=== PATIENT | male | born 1960 | race African-American/Black ===

== ENCOUNTER 2023-07-19 03:14 | Inpatient (IN) | payer MEDICARE ==
[~2023-07-19] VITALS: Ht 170.2 cm; Wt 93.0 kg
[2023-07-19] VITALS (10 sets, daily range): BP systolic 161; BP diastolic 81; PULSE 79–94; RESP 14–20; TEMP 98.2; O2SAT 90–98
[~2023-07-19 03:14] MED LIST: ATOR-47 PO; CAR125T PO; CLON0.2D6 PO; CLOP75TA28 PO; FLUO-126 PO; HYDR12.55 PO; LISI-275 PO; NITR0.4S29 SL; ONDA-144 PO; SITA50TA28 PO; ZOLP10TA PO
[2023-07-19 04:10] LABS: Mean Corpuscular Volume 100.7 fL (80.0-100.0)
[2023-07-19 04:13] LABS: Hematocrit 32.5 % (41.0-53.0); Hemoglobin 9.6 g/dL (13.5-17.5); Mean Corpuscular Hemoglobin 29.9 pg (28.0-32.0); Mean Corpuscular Hgb Conc. 29.7 g/dL (32.0-36.0); Red Blood Cells 3.23 10^6/uL (4.5-5.90); Red Cell Distribution Width 17.4 % (11.8-14.3)
[2023-07-19 04:25] LABS: Alanine Aminotransferase 49 U/L (7-40); Alkaline Phosphatase 117 U/L (46-116); Anion Gap 9 (5-15); Aspartate Aminotransferase 35 U/L (13-40); BUN/Creatinine Ratio 17.2 (10.0-20.0); Blood Urea Nitrogen 22 mg/dL (9-23); Calcium 8.7 mg/dL (8.7-10.4); Carbon Dioxide 21 mmol/L (20-30); Chloride 111 mmol/L (98-107); Glucose 144 mg/dL (74-106); Potassium 3.6 mmol/L (3.5-5.1); Sodium 141 mmol/L (136-145)
[2023-07-19 04:26] LABS: Bilirubin, Total 2.1 mg/dL (0.2-1.0)
[2023-07-19 04:30] LABS: White Blood Cell 226.4 10^3/uL (4.4-10.8)
[2023-07-19 04:32] LABS: Band Neutrophils % (manual) 0; Basophils % (manual) 0 (0.0-2.0); Blast Cells 0; Eosinophils % (manual) 0 (0-7); Metamyelocytes % 0; Monocytes % (manual) 0 (0-12); Myelocytes % 0; Promyelocytes % 0; Reactive Lymphocytes 0
[2023-07-19 04:37] LABS: INR 1.08 (0.9-1.15); Partial Thromboplastin Time 27.2 SEC (24.5-34.5); Prothrombin Time 11.3 sec (9.3-11.8)
[2023-07-19] MEDS: ACETAMINOPHEN 325 MG TAB PO ONE (06:00)
[2023-07-19] MEDS ORDERED: ALBUTEROL SULF 2.5 MG/0.5ML(0.5%) NEB SOLN HHN ONE (06:00)
[2023-07-19] MEDS ORDERED: IPRATROPIUM BROM 0.5 MG/2.5ML INH SOL HHN ONE (06:00)
[2023-07-19] MEDS ORDERED: VANCOMYCIN PER PHARMACY 0 MG IV SCH ×2 (06:00→08:45)
[2023-07-19] MEDS ORDERED: VANCOMYCIN 1GM/200ML 200 ML IV SCH (06:15)
[2023-07-19 06:38] LABS: Lymphocytes % (manual) 97 (10.0-50.0)
[2023-07-19 06:42] LABS: Macrocytosis Slight; Platelet Estimate Decreased
[2023-07-19 06:48] LABS: Anisocytosis Slight
[2023-07-19] MEDS: ALBUTEROL SULF 2.5 MG/0.5ML(0.5%) NEB SOLN NEB ONE (07:13)
[2023-07-19] MEDS: IPRATROPIUM BROM 0.5 MG/2.5ML INH SOL NEB ONE (07:13)
[2023-07-19] MEDS: IOHEXOL 300 MG/ML 100ML BOTTLE IJ ONE (08:12)
[2023-07-19] MEDS ORDERED: NITROGLYCERIN 0.4 MG SL TAB SL PRN (08:45)
[2023-07-19] MEDS ORDERED: ACETAMINOPHEN 325 MG TAB PO PRN (08:45)
[2023-07-19 09:36] LABS: Triglycerides 68 mg/dL (< 150)
[2023-07-19 09:37] LABS: LDL Cholesterol 49 mg/dL (< 100)
[2023-07-19 09:38] LABS: Cholesterol 88 mg/dL (< 200); HDL Cholesterol 27 mg/dL (40-59)
[2023-07-19] MEDS: ALBUTEROL SULF 2.5 MG/0.5ML(0.5%) NEB SOLN NEB SCH (10:00)
[2023-07-19] MEDS: IPRATROPIUM BROM 0.5 MG/2.5ML INH SOL NEB SCH (10:00)
[2023-07-19 12:00] LABS: Hematocrit 33.6 % (41.0-53.0); Hemoglobin 10.4 g/dL (13.5-17.5); Mean Corpuscular Hemoglobin 29.3 pg (28.0-32.0); Mean Corpuscular Hgb Conc. 30.9 g/dL (32.0-36.0); Red Blood Cells 3.53 10^6/uL (4.5-5.90); Red Cell Distribution Width 16.7 % (11.8-14.3)
[2023-07-19] MEDS: PIPERACILLIN-TAZOB 3.375GM 100 ML IV SCH (12:00)
[2023-07-19 12:15] LABS: White Blood Cell 241.7 10^3/uL (4.4-10.8)
[2023-07-19 12:17] LABS: Band Neutrophils % (manual) 0; Basophils % (manual) 0 (0.0-2.0); Blast Cells 0; Eosinophils % (manual) 0 (0-7); Metamyelocytes % 0; Myelocytes % 0; Promyelocytes % 0; Reactive Lymphocytes 0
[2023-07-19 12:54] LABS: Lymphocytes % (manual) 95 (10.0-50.0); Monocytes % (manual) 3 (0-12); Platelet Estimate Decreased
[2023-07-19] MEDS: LISINOPRIL 10 MG TAB PO ONE (13:00)
[2023-07-19] MEDS: MORPHINE SULFATE INJ 2 MG/ml SYRG IV ONE (13:00)
[2023-07-19] MEDS: SODIUM CHLORIDE 0.9% 1,000 ML IV SCH (13:00)
[2023-07-19] MEDS ORDERED: PIPERACILLIN-TAZOB 3.375GM 100 ML IV SCH (14:00)
[2023-07-19] MEDS: hydrALAZINE HCL 20 MG/ML VL IV PRN (14:04)
[2023-07-19] MEDS: MORPHINE SULFATE INJ 2 MG/ml SYRG IV PRN ×2 (14:14→17:59)
[2023-07-19 16:10] LABS: COVID19 ANTIGEN SOFIA FIA NEGATIVE (NEGATIVE)
[2023-07-19 16:11] LABS: Rapid Influenza A Negative (Negative); Rapid Influenza B Negative (Negative)
[2023-07-19] MEDS: IOHEXOL 350 MG/ML 100ML IJ ONE ×2 (17:14→22:35)
[2023-07-19] MEDS: VANCOMYCIN 1GM/200ML 200 ML IV ONE (18:00)
[2023-07-19] MEDS: HYDROcodone-ACET 5/325MG TAB PO PRN (20:48)
[2023-07-19] MEDS: ATORVASTATIN 20 MG TAB PO SCH (22:22)
[2023-07-19] MEDS: ZOLPIDEM TARTRATE 5 MG TAB PO PRN (22:23)
[2023-07-19] MEDS: CARVEDILOL 12.5 MG TAB PO SCH (22:23)
[2023-07-20] VITALS (14 sets, daily range): BP systolic 119–186; BP diastolic 59–83; PULSE 65–96; RESP 16–20; TEMP 98.3–98.9; O2SAT 92–100
[2023-07-20] MEDS ORDERED: CARV12.544 PO (00:47)
[2023-07-20] MEDS ORDERED: OLME1TAB71 PO (00:47)
[2023-07-20] MEDS ORDERED: GLUC-149 XX (00:47)
[2023-07-20] MEDS ORDERED: METF-869 PO (00:47)
[2023-07-20] MEDS ORDERED: ATOR40TA52 PO (00:47)
[2023-07-20] MEDS ORDERED: CLOP75TA70 PO (00:47)
[2023-07-20] MEDS ORDERED: HYDR-4298 PO (00:47)
[2023-07-20] MEDS ORDERED: CLON0.2T PO (00:47)
[2023-07-20] MEDS ORDERED: AMLO1TAB22 PO (00:47)
[2023-07-20] MEDS: hydrALAZINE HCL 20 MG/ML VL IV ONE ×2 (00:54→04:12)
[2023-07-20] MEDS: NITROGLYCERIN 0.4 MG SL TAB SL SCH (03:05)
[2023-07-20] MEDS: dilTIAZem 25 MG/5 ML VIAL IV ONE (03:30)
[2023-07-20] MEDS: ENALAPRILAT 1.25 MG/ML-1ML VIAL IV ONE (05:03)
[2023-07-20] MEDS: cloNIDine HCL 0.1 MG TAB PO ONE ×2 (06:05→10:45)
[2023-07-20 07:19] LABS: Alanine Aminotransferase 38 U/L (7-40); Albumin 4.1 g/dL (3.2-4.8); Alkaline Phosphatase 122 U/L (46-116); Anion Gap 9 (5-15); Aspartate Aminotransferase 36 U/L (13-40); BUN/Creatinine Ratio 9.6 (10.0-20.0); Bilirubin, Total 2.6 mg/dL (0.2-1.0); Blood Urea Nitrogen 10 mg/dL (9-23); Carbon Dioxide 20 mmol/L (20-30); Chloride 109 mmol/L (98-107); Glucose 147 mg/dL (74-106); Potassium 4.5 mmol/L (3.5-5.1); Sodium 138 mmol/L (136-145); Total Protein 6.3 g/dL (5.7-8.2)
[2023-07-20 07:52] LABS: Hematocrit 34.3 % (41.0-53.0); Hemoglobin 10.1 g/dL (13.5-17.5); Mean Corpuscular Hemoglobin 29.3 pg (28.0-32.0); Mean Corpuscular Hgb Conc. 29.5 g/dL (32.0-36.0); Mean Corpuscular Volume 99.4 fL (80.0-100.0); Red Blood Cells 3.45 10^6/uL (4.5-5.90); Red Cell Distribution Width 16.9 % (11.8-14.3)
[2023-07-20 08:08] LABS: White Blood Cell 243.5 10^3/uL (4.4-10.8)
[2023-07-20 08:09] LABS: Band Neutrophils % (manual) 0; Basophils % (manual) 0 (0.0-2.0); Blast Cells 0; Metamyelocytes % 0; Myelocytes % 0; Promyelocytes % 0
[2023-07-20] MEDS ORDERED: LISINOPRIL 5 MG TAB PO SCH (10:00)
[2023-07-20] MEDS: FLUoxetine HCL 10 MG CAP PO SCH (10:00)
[2023-07-20] MEDS: LOSARTAN POTASSIUM 50 MG TAB PO SCH (10:00)
[2023-07-20] MEDS: hydroCHLOROthiazide 25 MG TAB PO SCH (10:00)
[2023-07-20] MEDS ORDERED: CEFEPIME 2GM/50ML NS 50 ML IV ONE (10:30)
[2023-07-20] MEDS: VANCOMYCIN 1GM/200ML 200 ML IV SCH (10:44)
[2023-07-20] MEDS: amLODIPine BESYLATE 5 MG TAB PO SCH (10:55)
[2023-07-20] MEDS: LISINOPRIL 10 MG TAB PO SCH (10:56)
[2023-07-20] MEDS ORDERED: NITROGLYCERIN 0.4MG/HR TOPICAL PATCH TD ONE (11:15)
[2023-07-20 12:18] LABS: Eosinophils % (manual) 2 (0-7); Lymphocytes % (manual) 82 (10.0-50.0); Monocytes % (manual) 5 (0-12); Platelet Estimate Adequate; Reactive Lymphocytes 4
[2023-07-20] MEDS ORDERED: PATIENTS OWN MEDICATION (Clonidine Hydrochloride (Clonidine Hcl) 1 TAB) PO SCH (14:00)
[2023-07-20] MEDS ORDERED: TEMA30CA PO (14:25)
[2023-07-20] MEDS ORDERED: TRAZ-227 PO (14:25)
[2023-07-20] MEDS: ASPirin 81 mg TAB PO ONE (14:48)
[2023-07-20] MEDS: CLOPIDOGREL BISULFATE 75 MG TAB PO ONE (14:49)
[2023-07-20] MEDS: cloNIDine HCL 0.1 MG TAB PO SCH (14:50)
[2023-07-20] MEDS: CEFEPIME 2GM/50ML NS 50 ML IV SCH (14:51)
[2023-07-20] MEDS: SOD CHL 0.45% 1,000 ML IV SCH (15:01)
[2023-07-21] VITALS (21 sets, daily range): BP systolic 112–163; BP diastolic 64–103; PULSE 74–94; RESP 13–20; TEMP 98.5–99.2; O2SAT 89–100
[2023-07-21] MEDS: ALBUTEROL SULF 2.5 MG/0.5ML(0.5%) NEB SOLN NEB PRN (00:07)
[2023-07-21] MEDS: guaiFENesin-DM 100/10mg/5ml SYR PO PRN (00:24)
[2023-07-21 06:47] LABS: Urine WBC None Seen /hpf (0 - 3)
[2023-07-21 07:05] LABS: Urine Bacteria NONE SEEN /hpf (None Seen); Urine Blood Negative /uL (Negative); Urine Clarity Clear (Clear); Urine Color Colorless (Yellow); Urine Protein, UAD Negative (Negative); Urine Urobilinogen Normal (Negative); Urine pH 5.5 (5.0-8.0)
[2023-07-21] MEDS: VERAPAMIL 2.5MG/ML INJ 2ML VIAL IV ONE (08:42)
[2023-07-21] MEDS: ANGIOMAX 250 MG VIAL IV ONE ×2 (08:42→09:47)
[2023-07-21] MEDS: HEPARIN SODIUM (PORCINE) 5000 UNITS/ML 1ML VIAL ONE (08:42)
[2023-07-21] MEDS: fentaNYL CITRATE 100 MCG/2 ML VL ONE (08:43)
[2023-07-21] MEDS: SODIUM CHL 0.9% 50 ML ONE ×2 (08:44→09:47)
[2023-07-21] MEDS: IODIXANOL 320MG/ML 100ML BTL IV ONE ×4 (08:44→10:13)
[2023-07-21] MEDS: MIDAZOLAM HCL 2MG/2ML 2ml VIAL (1mg/ml) ONE (08:44)
[2023-07-21] MEDS: LIDOCAINE 2%HCL (LOCAL ANESTH.) INJ 20ML MDV ONE (08:44)
[2023-07-21] MEDS: FUROSEMIDE 20 MG/2 ML VIAL ONE (10:21)
[2023-07-21] MEDS: CLOPIDOGREL BISULFATE 75 MG TAB PO SCH (12:25)
[2023-07-21] MEDS: ASPirin 81 mg TAB PO SCH (12:27)
[2023-07-22] VITALS (9 sets, daily range): BP systolic 139–141; BP diastolic 79–80; PULSE 79–84; RESP 17–19; TEMP 97.8–98; O2SAT 93–100
[2023-07-22 05:43] LABS: Chloride 108 mmol/L (98-107); Potassium 4.3 mmol/L (3.5-5.1); Sodium 139 mmol/L (136-145)
[2023-07-22 05:44] LABS: Anion Gap 8 (5-15); Calcium 8.8 mg/dL (8.5-10.1); Carbon Dioxide 23 mmol/L (20-30)
[2023-07-22 05:49] LABS: BUN/Creatinine Ratio 11.4 (10.0-20.0); Blood Urea Nitrogen 13 mg/dL (9-23); Glucose 150 mg/dL (74-106)
[2023-07-22] MEDS ORDERED: ISOS1TAB28 PO (08:24)
[2023-07-22] MEDS ORDERED: DOXY-286 PO (08:24)
[2023-07-22] MEDS ORDERED: AUG875T PO (08:24)
== END 2023-07-22 11:45 | disposition home or self-care (01) | DRG 871 ==
LOC: ER 03:14 → TELE 08:47 → TELE-EAST 08:47
PROVIDERS: ADMIT Nurse Practitioner Family; ATTEND Nurse Practitioner Acute Care
PROC: 4A023N7 Measurement of Cardiac Sampling and Pressure, Left Heart, Percutaneous Approach (ICD-10-PCS; principal; 2023-07-21)
PROC: B2111ZZ Fluoroscopy of Multiple Coronary Arteries using Low Osmolar Contrast (ICD-10-PCS; 2023-07-21)
DX: A41.9 Sepsis, unspecified organism (principal); I21.4 Non-ST elevation (NSTEMI) myocardial infarction; J96.01 Acute respiratory failure with hypoxia; J15.69 Pneumonia due to other Gram-negative bacteria; J15.9 Unspecified bacterial pneumonia; T82.855A Stenosis of coronary artery stent, initial encounter; R04.2 Hemoptysis; Z68.32 Body mass index [BMI] 32.0-32.9, adult; I10 Essential (primary) hypertension; R74.01 Elevation of levels of liver transaminase levels; E11.9 Type 2 diabetes mellitus without complications; R07.89 Other chest pain; Z20.822 Contact with and (suspected) exposure to COVID-19; Y83.1 Surgical operation with implant of artificial internal device as the cause of abnormal reaction of the patient, or of later complication, without mention of misadventure at the time of the procedure; E66.9 Obesity, unspecified; E78.5 Hyperlipidemia, unspecified; Z79.02 Long term (current) use of antithrombotics/antiplatelets; Z79.899 Other long term (current) drug therapy; Z80.6 Family history of leukemia; Z82.49 Family history of ischemic heart disease and other diseases of the circulatory system; Z83.3 Family history of diabetes mellitus; Z95.1 Presence of aortocoronary bypass graft
CPT/HCPCS: 36415; 70491; 71045; 71275; 80048; 80053; 80061; 80202; 81001; 82270; 83036; 83605; 83880; 84443; 84484; 85007; 85027; 85379; 85610; 85730; 86850; 86900; 86901; 87040; 87070; 87081; 87205; 87426; 87804; 93005; 93306; 93458; 93970; 94640; 96361; 96365; 96375; 96376; 99152; 99153; C1769; G0378; J0692; J2250; J2543; Q9967